=== PATIENT | female | born 1945 ===

== ENCOUNTER 2017-03-29 03:09 | Emergency (ER) | payer MEDICARE, BC ==
[2017-03-29] MEDS ORDERED: Ondansetron 4 MG/2 ML SDV IVPUSH ONE (03:44)
[2017-03-29] MEDS ORDERED: HYDROmorphone 0.5 MG/0.5 ML SYRINGE IVPUSH STA (03:45)
[2017-03-29] MEDS ORDERED: Sodium Chloride 0.9% 1,000 ML IV SCH (03:45)
--- NOTE | 2017-03-29 03:52 | EDM.PDOC ---
<Cameron Abdalla - Last Filed: 03/29/17 07:00> ED HPI GENERAL MEDICAL PROBLEM - General Chief Complaint: Abdominal Pain Stated Complaint: ABDOMINAL PAIN Time Seen by Provider: 03/29/17 03:26 Source of Information: Reports: Patient, Family () History Limitations: Reports: No Limitations - History of Present Illness INITIAL COMMENTS - FREE TEXT/NARRATIVE: The patient states that she was woken from sleep around 00:30 or 01:00 with stabbing right upper quadrant and epigastric pain that radiates through to her back. The pain has been waxing and waning. She has not identified any modifiers. She has had nausea, but no emesis. No recent constipation, diarrhea, or urinary symptoms. No recent fever. No prior similar symptoms. The patient states that her last oral solid food was pizza around 18:30 last night. The patient's PCP is Angeli Steele. Bilateral Upper Abdomen Pain Score (Numeric/FACES): 10 - Related Data Allergies Allergy/AdvReac Type Severity Reaction Status Date / Time morphine Allergy Vomiting Verified 03/29/17 03:15 Home Meds: Home Meds Aspirin [Halfprin] 81 mg PO DAILY 03/29/17 [History] Citalopram [Citalopram HBr] 40 mg PO DAILY 03/29/17 [History] Hydrochlorothiazide 25 mg PO DAILY 03/29/17 [History] Pantoprazole [ProTONIX] 40 mg PO DAILY 03/29/17 [History] Rosuvastatin [Crestor] 20 mg PO DAILY 03/29/17 [History] Zolpidem [Ambien] 5 mg PO BEDTIME PRN 03/29/17 [History] amLODIPine [Norvasc] 5 mg PO DAILY 03/29/17 [History] Past Medical History Cardiovascular History: Reports: High Cholesterol, Hypertension Gastrointestinal History: Reports: Colon Polyp, Diverticulosis, GERD, PUD, Other (See Below) (Gastric polyposis, one of which was cancerous) Musculoskeletal History: Reports: Arthritis Endocrine/Metabolic History: Reports: Obesity/BMI 30+ - Past Surgical History HEENT Surgical History: Reports: Eye Surgery (Bilateral corneal transplant), Oral Surgery (To wisdom teeth extracted) GI Surgical History: Reports: Other (See Below) (Exploratory laparoscopy) Female Surgical History: Reports: Breast Biopsy (left, x 3), Breast Reduction , Salpingo-Oophorectomy (right, around 1980) Musculoskeletal Surgical History: Reports: Other (See Below) (Right bunionectomy ) Social & Family History - Tobacco Use Smoking Status *Q: Never Smoker Second Hand Smoke Exposure: No - Caffeine Use Caffeine Use: Reports: Coffee - Alcohol Use Alcohol Use History: Yes Alcohol Use Frequency: Socially - Recreational Drug Use Recreational Drug Use: No - Living Situation & Occupation Living situation: Reports: , with Spouse Occupation: Retired ED ROS GENERAL - Review of Systems Review Of Systems: ROS reveals no pertinent complaints other than HPI. ED EXAM, GI/ABD - Physical Exam Exam: See Below Exam Limited By: No Limitations General Appearance: Alert, WD/WN, No Apparent Distress Eyes: Bilateral: Normal Appearance, EOMI Ears: Normal External Exam, Hearing Grossly Normal Nose: Normal Inspection, No Blood Throat/Mouth: Normal Inspection, Normal Lips, Normal Voice, No Airway Compromise Head: Atraumatic, Normocephalic Neck: Normal Inspection, Full Range of Motion Respiratory/Chest: No Respiratory Distress, Lungs Clear, Normal Breath Sounds, No Accessory Muscle Use Cardiovascular: Normal Peripheral Pulses, Regular Rate, Rhythm, No Gallop, No JVD, No Murmur, No Rub GI/Abdominal Exam: Normal Bowel Sounds, Soft, No Organomegaly, No Distention, No Abnormal Bruit, No Mass, Tender (Primarily in the right upper quadrant, less so in the epigastrium. Essentially nontender elsewhere. Reddy's sign positive.) (Female) Exam: Deferred Rectal (Female) Exam: Deferred Back Exam: Normal Inspection, Full Range of Motion. No: CVA Tenderness (L), CVA Tenderness (R) Extremities: Normal Inspection, Normal Range of Motion, No Pedal Edema, Normal Capillary Refill Neurological: Alert, Oriented, Normal Cognition, No Motor/Sensory Deficits Psychiatric: Normal Affect Skin Exam: Warm, Dry, Intact, Normal Color, No Rash Course - Vital Signs Last Recorded V/S: Last Vital Signs Temp 97.7 F 03/29/17 03:19 Pulse 68 03/29/17 03:19 Resp 18 03/29/17 03:19 BP 125/75 03/29/17 03:19 Pulse Ox 97 03/29/17 03:19 - Orders/Labs/Meds Orders: Active Orders 24 hr Category Date Time Status Abdomen Ltd [US] Stat Exams 03/29/17 03:43 Taken Abdomen Pelvis w Cont [CT] Stat Exams 03/29/17 03:44 Taken Sodium Chloride 0.9% [Normal Saline] 1,000 ml Med 03/29/17 03:45 Active IV ASDIRECTED Sodium Chloride 0.9% [Saline Flush] Med 03/29/17 05:48 Active 10 ml FLUSH ONETIME PRN Medication Orders Sodium Chloride (Normal Saline) 1,000 mls @ 150 mls/hr IV ASDIRECTED YUMIKO Last Admin: 03/29/17 04:07 Dose: 150 mls/hr Sodium Chloride (Saline Flush) 10 ml FLUSH ONETIME PRN PRN Reason: IV FLUSH Last Admin: 03/29/17 06:06 Dose: 10 ml Labs: Laboratory Tests 03/29/17 03/29/17 03/29/17 Range/Units 04:05 04:05 06:57 WBC 10.26 H (3.98-10.04) K/mm3 RBC 4.58 (3.98-5.22) M/mm3 Hgb 14.0 (11.2-15.7) gm/L Hct 42.0 (34.1-44.9) % MCV 91.7 (79.4-94.8) fl MCH 30.6 (25.6-32.2) pg MCHC 33.3 (32.2-35.5) g/dl RDW Std Deviation 41.4 (36.4-46.3) fL Plt Count 365 (182-369) K/mm3 MPV 10.0 (9.4-12.3) fl Neutrophils % (Manual) 63 H (40-60) % Band Neutrophils % 0 (0-10) % Lymphocytes % (Manual) 31 (20-40) % Atypical Lymphs % 0 % Monocytes % (Manual) 6 (2-10) % Eosinophils % (Manual) 0 L (0.7-5.8) % Basophils % (Manual) 0 L (0.1-1.2) Platelet Estimate Adequate RBC Morph Comment Normal Sodium 139 (136-145) mEq/L Potassium 3.3 L (3.5-5.1) mEq/L Chloride 100 (98-107) mEq/L Carbon Dioxide 24 (21-32) mEq/L Anion Gap 18.3 H (5-15) BUN 13 (7-18) mg/dL Creatinine 1.0 (0.55-1.02) mg/dL Est Cr Clr Drug Dosing 38.14 mL/min Estimated GFR (MDRD) 55 (>60) mL/min BUN/Creatinine Ratio 13.0 L (14-18) Glucose 123 H (80-115) mg/dL Calcium 9.1 (8.5-10.1) mg/dL Total Bilirubin 0.2 (0.2-1.0) mg/dL AST 40 H (15-37) U/L ALT 32 (14-59) U/L Alkaline Phosphatase 67 (46-116) U/L Total Protein 7.7 (6.4-8.2) g/dl Albumin 4.3 (3.4-5.0) g/dl Globulin 3.4 gm/dL Albumin/Globulin Ratio 1.3 (1-2) Lipase 131 (73-393) U/L Urine Color Yellow (Yellow) Urine Appearance Clear (Clear) Urine pH 6.0 (5.0-8.0) Ur Specific [place] 1.015 (1.005-1.030) Urine Protein Negative (Negative) Urine Glucose (UA) Negative (Negative) Urine Ketones Negative (Negative) Urine Occult Blood Trace-intact H (Negative) Urine Nitrite Negative (Negative) Urine Bilirubin Negative (Negative) Urine Urobilinogen 0.2 (0.2-1.0) Ur Leukocyte Esterase Negative (Negative) Meds: Medications Generic Name Dose Route Start Last Admin Trade Name Freq PRN Reason Stop Dose Admin Sodium Chloride 1,000 mls @ 150 mls/hr 03/29/17 03:45 03/29/17 04:07 Normal Saline IV 150 mls/hr ASDIRECTED YUMIKO Administration Sodium Chloride 10 ml 03/29/17 05:48 03/29/17 06:06 Saline Flush FLUSH 10 ml ONETIME PRN Administration IV FLUSH Discontinued Medications Generic Name Dose Route Start Last Admin Trade Name Freq PRN Reason Stop Dose Admin Diatrizoate Meglum/Diatrizoate Sod 90 ml 03/29/17 05:48 03/29/17 06:05 Gastrografin 37% PO 03/29/17 05:49 90 ml ONETIME ONE Administration Hydromorphone HCl 1 mg 03/29/17 03:45 03/29/17 04:04 Dilaudid IVPUSH 03/29/17 03:46 1 mg ONETIME STA Administration Iopamidol 100 ml 03/29/17 05:48 03/29/17 06:04 Isovue-300 (61%) IVPUSH 03/29/17 05:49 100 ml ONETIME ONE Administration Ondansetron HCl 4 mg 03/29/17 03:44 03/29/17 04:03 Zofran IVPUSH 03/29/17 03:45 4 mg ONETIME ONE Administration - Re-Assessments/Exams Free Text/Narrative Re-Assessment/Exam: 03/29/17 03:52 Clinically, the patient is suffering from acute cholecystitis. Because it has been over 6 hours since the patient last ate, I have ordered an ultrasound of the right upper quadrant, to be followed by a CT scan of the abdomen and pelvis with oral and IV contrast. In the meantime, I have ordered blood work and a urinalysis, along with IV fluids, Dilaudid, and Zofran. I explained to the patient and her that her workup will take several hours. 03/29/17 05:44 Ultrasound of the right upper quadrant is read by [facility] as: Distended gallbladder. This is nonspecific and can be seen in fasting state or cholecystitis. Positive sonographic Reddy's sign reported, suggesting possible cholecystitis. No additional findings to confirm cholecystitis at this time. 03/29/17 07:00 The patient provided a urine sample initially, however, the volume was too low for the lab to be able to perform a urinalysis. He has just provided a second urine sample. The CT scan has been performed, but the results are still pending. Case discussed with Dr. Shawn Dutton, and care of the patient turned over to him at this time, for change of shift. Departure - Departure Disposition: Home, Self-Care 01 Clinical Impression: Abdominal pain Qualifiers: Abdominal location: right upper quadrant Qualified Code(s): R10.11 - Right upper quadrant pain - Discharge Information Referrals: Donna Steele, [facility] [Primary Care Provider] - Forms: ED Department Discharge Additional Instructions: Avoid all fatty food for now, you have been giving sedative pain medication while here in the ED so do not drive until midafternoon today to give that a chance to wear off. See Dr. Will, first available appointment, call for appointment after 8:00 this morning, return to ED as needed. <Inocencio Douglass - Last Filed: 03/29/17 07:27> Course - Re-Assessments/Exams Free Text/Narrative Re-Assessment/Exam: 03/29/17 07:26. Have assumed care from Dr. Abdalla. I agree with his history and exam as documented. CT of abdomen shows gallbladder hydrops, 10 cm in length , 5.7 cm diameter. No gallstones no wall thickening no surrounding fluid. See radiology report for details. Patient is resting very comfortably pain-free. Discharge instructions as documented Departure - Departure Time of Disposition: 07:22 Condition: Fair
[2017-03-29] MEDS ORDERED: Sodium Chloride 0.9% 10 ML Syringe FLUSH PRN (05:48)
[2017-03-29] MEDS ORDERED: Iopamidol 612 MG/ML 100 ML Bottle IVPUSH ONE (05:48)
[2017-03-29] MEDS ORDERED: Diatrizoate Meglumine/Diatrizoate Sodium 37% 120 ML Bottle PO ONE (05:48)
--- NOTE | 2017-03-29 08:25 | US ---
Limited abdominal ultrasound: Multiple real-time images of the upper right abdomen were obtained. Comparison: Previous right upper quadrant abdominal ultrasound of 11/14/09. Liver is echogenic. Gallbladder is well distended. No gallstones are seen. No gallbladder wall thickening is noted. Common bile duct is prominent in size at 8.6 mm. Right kidney shows no hydronephrosis or mass. Pancreas appears within normal limits. Portal vein shows hepatopedal flow. Inferior vena cava is patent. Impression: 1. Dilated gallbladder with common bile duct prominent at 8.6 mm. No gallstones are seen. No gallbladder wall thickening is identified. Etiology for these findings are not seen. Consider MRCP to further evaluate. Depending on these results, biliary HIDA scan may also be helpful. 2. Echogenic liver compatible with fatty infiltration. Diagnostic code #3 Agree with preliminary report issued by [email or web address] ([facility] preliminary report dictated on 03/29/17, 6:41 AM Central Time)
--- NOTE | 2017-03-29 08:35 | CT ---
Abdominal and pelvic CT Technique: Multiple axial sections were obtained from above the dome of the diaphragm inferiorly through the pubic symphysis. Intravenous and oral contrast was utilized. Delayed images were obtained through the bladder. Comparison: Prior abdominal ultrasound performed earlier on the same day (4:13 AM). No prior abdominal or pelvic CT exam. Findings: Visualized lung bases show nothing acute. Small hiatal hernia is seen with reflux of contrast into the esophagus. Liver shows no focal parenchymal abnormality but shows mild fatty infiltration. Spleen appears within normal limits. Gallbladder again is noted to be dilated which was seen on prior ultrasound. Adrenal glands show no nodule. Kidneys show symmetric enhancement without hydronephrosis or mass. Pancreas is within normal limits. Aorta shows no aneurysmal dilatation. No retroperitoneal adenopathy is seen. Appendix is seen which is normal. No pelvic mass or adenopathy is seen. Minimal increased stool noted throughout the colon. Delayed images show contrast within the bladder. Incidental colonic diverticuli are seen without inflammatory change. Bone window settings were reviewed which show degenerative change within the spine primarily at L2-L3 with disc space narrowing and vacuum phenomena. Impression: 1. Dilated gallbladder again noted. Please see ultrasound report for further recommendations. 2. Fatty infiltration within the liver. 3. Other incidental findings as noted above. Diagnostic code #3 Agree with preliminary report issued by [facility] ([facility] preliminary report dictated on 03/29/17, 8:10 AM Central Time)
== END 2017-03-29 08:48 | disposition home or self-care (01) ==
LOC: JD.ED 03:09
DX: K82.8 Other specified diseases of gallbladder (principal); R10.13 Epigastric pain; I10 Essential (primary) hypertension; E78.00 Pure hypercholesterolemia, unspecified; K21.9 Gastro-esophageal reflux disease without esophagitis; Z79.82 Long term (current) use of aspirin; Z79.899 Other long term (current) drug therapy; Z88.5 Allergy status to narcotic agent
CPT/HCPCS: 36415; 74177; 76705; 80053; 81001; 83690; 85025; 96361; 96374; 96375; 99284; J1170; J2405; J7040; J7050; Q9963; Q9967